=== PATIENT | male | born 1975 | race African-American/Black ===

== ENCOUNTER 2019-06-19 16:35 | Observation (INO) | payer SELFPAY ==
[~2019-06-19] VITALS: Ht 175.3 cm; Wt 168.0 kg
[~2019-06-19 16:35] MED LIST: AMOXICILLIN875 MG PO; DOXYCYCL HYC100 MG PO; HYDROCHLOROT12.5 MG PO; NAPROSYN500 MG PO; NO; NO HOME MEDS; ZOFRAN ODT4 MG PO
[2019-06-19 17:14] LABS: HEMATOCRIT 40.4 % (39.0-50.0); HEMOGLOBIN 12.7 g/dl (14.0-18.0); IMMATURE GRANULOCYTES 0.6 % (0.0-5.0); MEAN CORPUSCULAR HGB 27.7 pG CALC (26.0-32.0); MEAN CORPUSCULAR HGB CONC 31.4 g/L CALC (32.0-36.0); NEUT# 18.45 thou/uL (1.82-7.42); RED BLOOD COUNT 4.59 mill/uL (4.70-6.10); RED CELL DISTRI WIDTH 13.5 % (11.5-15.5)
[2019-06-19 17:28] LABS: ALBUMIN 3.5 g/dL (3.2-5.0); ALKALINE PHOSPHATASE 89 u/l (38-126); ANION GAP 12 (6-22 (CALC)); BILIRUBIN, TOTAL 0.6 mg/dL (0.0-1.4); BUN 12 mg/dL (9-20); BUN/CREATININE RATIO 12 (12-20 (CALC)); CARBON DIOXIDE 28 mmol/l (22-30); CHLORIDE 101 mmol/l (95-108); GFR > 60 ML/MIN (>=60 (CALC)); GFR FOR AFR.AMER. > 60 ML/MIN (>=60 (CALC)); POTASSIUM 3.5 mmol/l (3.5-5.1); SGOT/AST 23 u/l (17-59); SODIUM 137 mmol/l (137-146); TOTAL PROTEIN 7.7 g/dL (6.3-8.2)
[2019-06-19 21:30] VITALS: BP 137/93
[2019-06-20 00:05] VITALS: BP 136/82
[2019-06-20 05:00] VITALS: BP 121/93
[2019-06-20 05:50] LABS: URINE BILIRUBIN - DIPSTICK NEGATIVE (NEGATIVE); URINE BLOOD DIPSTICK SMALL (NEGATIVE); URINE COLOR YELLOW; URINE GLUCOSE - DIPSTICK NEGATIVE (NEGATIVE); URINE KETONE TRACE mg/dL (NEGATIVE); URINE LEUK ESTERASE NEGATIVE (NEGATIVE); URINE NITRITE - DIPSTICK NEGATIVE (Negative); URINE PROTEIN - DIPSTICK 30 mg/dL (NEG-TRACE); URINE SPECIFIC GRAVITY >=1.030; URINE UROBILINOGEN - DIPSTICK 0.2 E.U./dL (0.2)
[2019-06-20 06:02] LABS: URINE MUCUS FEW hpf (NONE-FEW); URINE RBC 0-2 RBC/hpf (0-5)
[2019-06-20 08:00] VITALS: BP 139/82
[2019-06-20 14:56] VITALS: BP 138/83
[2019-06-20 20:48] VITALS: BP 113/74
[2019-06-21 04:54] LABS: HEMATOCRIT 37.6 % (39.0-50.0); HEMOGLOBIN 11.8 g/dl (14.0-18.0); MEAN CORPUSCULAR HGB 28.2 pG CALC (26.0-32.0); MEAN CORPUSCULAR HGB CONC 31.4 g/L CALC (32.0-36.0); RED BLOOD COUNT 4.18 mill/uL (4.70-6.10); RED CELL DISTRI WIDTH 13.5 % (11.5-15.5)
[2019-06-21 05:22] LABS: ANION GAP 9 (6-22 (CALC)); BUN 9 mg/dL (9-20); BUN/CREATININE RATIO 10 (12-20 (CALC)); CARBON DIOXIDE 28 mmol/l (22-30); CHLORIDE 107 mmol/l (95-108); CREATININE 0.9 mg/dL (0.7-1.3); GFR > 60 ML/MIN (>=60 (CALC)); GFR FOR AFR.AMER. > 60 ML/MIN (>=60 (CALC)); POTASSIUM 3.9 mmol/l (3.5-5.1); SODIUM 140 mmol/l (137-146)
[2019-06-21 05:42] VITALS: BP 107/53
[2019-06-21 08:30] VITALS: BP 115/55
[2019-06-21 15:00] VITALS: BP 134/76
[2019-06-21 20:07] VITALS: BP 134/83
[2019-06-22 04:47] VITALS: BP 114/73
[2019-06-22 08:40] VITALS: BP 118/61
[2019-06-22] MEDS ORDERED: BACTRIM DS1 TAB PO (12:21)
== END 2019-06-22 14:12 | disposition home or self-care (01) | DRG 603 ==
LOC: ED 16:35 → ED-I 18:55 → ED 20:35 → MS2 20:36
PROVIDERS: Emergency Medicine; Internal Medicine; ADMIT Internal Medicine; ATTEND Internal Medicine
DX: L03.116 Cellulitis of left lower limb (principal); Z68.43 Body mass index [BMI] 50.0-59.9, adult; I10 Essential (primary) hypertension; E86.0 Dehydration; E66.9 Obesity, unspecified
CPT/HCPCS: G0378; J0692; J1650; J3370

== ENCOUNTER 2019-12-08 | Emergency (ER) | payer BC ==
[~2019-12-08] MED LIST changes: +BACTRIM DS1 TAB PO
[2019-12-08] MEDS ORDERED: BIAXIN500 MG PO (04:33)
== END 2019-12-08 05:00 | disposition home or self-care (01) | DRG 153 ==
DX: H65.92 Unspecified nonsuppurative otitis media, left ear (principal); J06.9 Acute upper respiratory infection, unspecified; E66.9 Obesity, unspecified; I10 Essential (primary) hypertension

== ENCOUNTER 2020-08-03 14:41 | Emergency (ER) | payer SELFPAY ==
[~2020-08-03] VITALS: Ht 175.3 cm; Wt 167.0 kg
[~2020-08-03 14:41] MED LIST changes: +BIAXIN500 MG PO
[2020-08-03] MEDS ORDERED: NAPROXEN375 MG PO (15:52)
[2020-08-03 16:32] VITALS: BP 129/81
== END 2020-08-03 16:32 | disposition home or self-care (01) | DRG 556 ==
LOC: ED 14:41
DX: M25.561 Pain in right knee (principal); I10 Essential (primary) hypertension; E66.9 Obesity, unspecified